=== PATIENT | male | born 2000 | race African-American/Black ===

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

== ENCOUNTER 2021-03-15 22:58 | Emergency (ER) | payer BC, OTHER ==
[~2021-03-15] VITALS: Ht 175.3 cm; Wt 90.9 kg
[~2021-03-15 22:58] MED LIST changes: -CETI10TA22 PO; +CETI10TA74 PO
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
[2021-03-16] MEDS ORDERED: HYDROcodone/APAP 5/325MG 1 TAB TABLET PO ONE
[2021-03-16] MEDS ORDERED: TETANUS AND DIPHTHERIA TOX/PF 0.5 ML DISP.SYRIN. VAX IM ONE (00:15)
--- NOTE | 2021-03-16 01:11 | RAD ---
XR HAND_RIGHT 3 VIEWS, XR HAND_LEFT 3 VIEWS History: Injury. Comparison: None. Technique: 3 views of left hand. 3 views of the right hand. Findings: Osseous mineralization is normal. No acute fracture or dislocaton. No significant degenerative change s. Soft tissues are unremarkable. Impression: 1. Unremarkable bilateral hands. Electronically signed by: Andres Ramírez MD (03/16/2021 1:08 AM) [facility]
--- NOTE | 2021-03-16 01:11 | RAD ---
XR HAND_RIGHT 3 VIEWS, XR HAND_LEFT 3 VIEWS History: Injury. Comparison: None. Technique: 3 views of left hand. 3 views of the right hand. Findings: Osseous mineralization is normal. No acute fracture or dislocaton. No significant degenerative change s. Soft tissues are unremarkable. Impression: 1. Unremarkable bilateral hands. Electronically signed by: Andres Ramírez MD (03/16/2021 1:08 AM) [facility]
[2021-03-16 01:56] VITALS: BP 114/75
== END 2021-03-16 02:00 | disposition home or self-care (01) ==
LOC: ER 22:58
DX: S60.222A Contusion of left hand, initial encounter (principal); S60.511A Abrasion of right hand, initial encounter; J45.909 Unspecified asthma, uncomplicated; X58.XXXA Exposure to other specified factors, initial encounter; Y93.89 Activity, other specified; Y92.89 Other specified places as the place of occurrence of the external cause; Y99.8 Other external cause status
CPT/HCPCS: 73130; 90471; 90714; 99284